=== PATIENT | male | born 1975 | race Caucasian/White ===

== ENCOUNTER → 2024-07-08 09:11 | Outpatient (REF) | payer BC, SELFPAY | LOC: HWRCS 09:11 | PROVIDERS: ATTENDING PHYSICIAN Internal Medicine Cardiovascular Disease; FAMILY PHYSICIAN Family Medicine | DX: I10 Essential (primary) hypertension (principal); I45.10 Unspecified right bundle-branch block | CPT/HCPCS: 93306 ==